=== PATIENT | female | born 1935 ===

== ENCOUNTER 2017-11-19 12:55 | Observation (INO) | payer MEDICARE, MEDICAID ==
--- NOTE | 2017-11-19 13:17 | C.PDOC ---
History Of Present Illness 82 year old female was sent to the ED by Dr. Pretty for an evaluation of chest pain that began at 0100 this morning. Patient describes pain as pressure with mild shortness of breath. She denies any nausea, syncope, diaphoresis. Time Seen by Provider: 11/19/17 13:11 Chief Complaint (Nursing): Chest Pain History Per: Patient History/Exam Limitations: no limitations Onset/Duration Of Symptoms: Hrs Current Symptoms Are (Timing): Still Present Quality: Pressure Associated Symptoms: denies: Nausea, Diaphoresis, Syncope Past Medical History Reviewed: Historical Data, Nursing Documentation, Vital Signs Vital Signs: Last Vital Signs Temp 97.9 F 11/19/17 13:05 Pulse 100 H 11/19/17 13:05 Resp 18 11/19/17 13:05 BP 123/72 11/19/17 13:49 Pulse Ox 100 11/19/17 13:42 - Medical History PMH: No Chronic Diseases Surgical History: No Surg Hx Family History: States: No Known Family Hx - Social History Hx Alcohol Use: No Hx Substance Use: No Review Of Systems Except As Marked, All Systems Reviewed And Found Negative. Cardiovascular: Positive for: Chest Pain Physical Exam - Physical Exam Appears: Non-toxic, No Acute Distress Skin: Warm, Dry Head: Atraumatic, Normacephalic Eye(s): bilateral: Normal Inspection Nose: Normal Oral Mucosa: Moist Neck: Supple Chest: Symmetrical Cardiovascular: Rhythm Regular Respiratory: Normal Breath Sounds, No Rales, No Rhonchi, No Wheezing Gastrointestinal/Abdominal: Soft, No Tenderness, No Guarding, No Rebound Neurological/Psych: Oriented x3, Normal Speech Gait: Steady ED Course And Treatment - Laboratory Results Result Diagrams: 11/19/17 13:45 11/19/17 13:45 ECG: Interpreted By Me, Viewed By Me ECG Rhythm: Sinus Rhythm ECG Interpretation: No Acute Changes Interpretation Of ECG: Normal axis, normal intervals, No ST/T wave abnormalities Rate From EC O2 Sat by Pulse Oximetry: 100 Medical Decision Making Medical Decision Making: Impression: Chest pain Plan - EKG -Labs - CXR - Aspirin 325mg PO 1430 - chest pain , case discussed with Dr. Rivera Pretty and will admit to tele observation cxr - preliminary reading - nad Disposition Discussed With : Abdulaziz Pretty Doctor Will See Patient In The: Hospital Counseled Patient/Family Regarding: Studies Performed, Diagnosis - Disposition Disposition: HOSPITALIZED Disposition Time: 14:30 Condition: FAIR Forms: [facility] (Kinyarwanda) - Clinical Impression Clinical Impression: Chest pain - Scribe Statement The provider has reviewed the documentation as recorded by the Scribe Dara Fairchild All medical record entries made by the Juanibe were at my direction and personally dictated by me. I have reviewed the chart and agree that the record accurately reflects my personal performance of the history, physical exam, medical decision making, and the department course for this patient. I have also personally directed, reviewed, and agree with the discharge instructions and disposition.
[2017-11-19] MEDS ORDERED: Aspirin 325 mg EC Tablets PO STA (13:20)
[2017-11-19 13:52] LABS: BASO % 0.3 % (0.0-2.0); EOS # 0.1 K/uL (0.0-0.7); EOS % 0.6 % (0.0-4.0); HEMOGLOBIN 13.5 g/dL (11.0-16.0); LYMPH # 1.6 K/uL (1.0-4.3); LYMPH % 18.7 % (20.0-40.0); MEAN CELL VOLUME 79.3 fL (81.0-99.0); MEAN CORPUSCULAR HEMOGLOBIN 26.3 pg (27.0-31.0); MEAN CORPUSCULAR HGB CONC 33.2 g/dL (33.0-37.0); MEAN PLATELET VOLUME 8.9 fL (7.2-11.7); MONO # 0.5 K/uL (0.0-0.8); MONO % 6.2 % (0.0-10.0); NEUT # 6.3 K/uL (1.8-7.0); NEUT % 74.2 % (50.0-75.0); RBC 5.12 Mil/uL (3.80-5.20); WHITE BLOOD COUNT 8.6 K/uL (4.8-10.8)
[2017-11-19 14:00] LABS: INR 1.1; PROTHROMBIN TIME 12.5 SECONDS (9.7-12.2)
[2017-11-19 14:09] LABS: ALB/GLOB RATIO 1.6 (1.0-2.1); ALBUMIN 4.1 g/dL (3.5-5.0); ALT/SGPT 18 U/L (9-52); AST/SGOT 22 U/L (14-36); BLOOD UREA NITROGEN 7 mg/dL (7-17); CALCIUM 9.1 mg/dl (8.6-10.4); GFR AFRICAN-AMERICAN > 60; GFR NON-AFRICAN AMERICAN > 60
[2017-11-19 14:18] LABS: B-TYPE NATRIURETIC PEPTIDE 124 pg/mL (0-900)
--- NOTE | 2017-11-19 18:06 | RAD ---
Date of service: 11/19/2017 PROCEDURE: CHEST RADIOGRAPH, 1 VIEW HISTORY: SOB COMPARISON: None available. FINDINGS: LUNGS: No acute pulmonary disease appreciated bilaterally. PLEURA: No pneumothorax or pleural fluid seen. CARDIOVASCULAR: Normal. OSSEOUS STRUCTURES: No significant abnormalities. VISUALIZED UPPER ABDOMEN: Normal. OTHER FINDINGS: None. IMPRESSION: No acute cardiopulmonary disease appreciated.
[2017-11-19 20:09] LABS: CK-MB 0.71 ng/mL (0.0-3.38)
[2017-11-19 23:11] LABS: SQUAMOUS EPITHIAL 2 /hpf (0-5); URINE BACTERIA FEW (<OCC); URINE BILIRUBIN NEGATIVE (NEGATIVE); URINE BLOOD 2+ (NEGATIVE); URINE CLARITY Clear (Clear); URINE COLOR Yellow (YELLOW); URINE GLUCOSE (UA) NORMAL (Normal); URINE PROTEIN NEGATIVE (NEGATIVE); URINE UROBILINOGEN NORMAL mg/dL (0.2-1.0)
[2017-11-19 23:21] LABS: URINE LEUKOCYTE ESTERASE 1+ Leu/uL (Negative)
[2017-11-20 01:13] VITALS: RESP 20
--- NOTE | 2017-11-20 08:35 | RAD ---
Date of service: 11/19/2017 PROCEDURE: BILATERAL SHOULDER RADIOGRAPHS HISTORY: Pain COMPARISON: None available TECHNIQUE: Two views of each shoulder been center for interpretation. FINDINGS: No acute fracture or destructive bony lesion identified. A dislocation or subluxation. Diffuse osteopenia suggests osteoporosis bilaterally with advanced degenerative change identified in the bilateral acromioclavicular joints. Limited degenerative changes seen the glenohumeral joints. Local soft tissues are unremarkable bilaterally. IMPRESSION: No acute fracture or dislocation. Degenerative changes appear moderate as discussed above bilaterally.
[2017-11-20] MEDS: Pantoprazole 40 mg EC Tab PO SCH (09:50)
[2017-11-20] MEDS: Enoxaparin 40 mg Syringe SC SCH (09:50)
--- NOTE | 2017-11-20 13:35 | CP.PCM.HP ---
Past Patient History - Infectious Disease Hx of Infectious Diseases: None - Past Social History Smoking Status: Never Smoked - PSYCHIATRIC Hx Substance Use: No - SURGICAL HISTORY Hx Surgeries: No Meds Allergies/Adverse Reactions: Allergies Allergy/AdvReac Type Severity Reaction Status Date / Time No Known Allergies Allergy Verified 11/19/17 13:04 Physical Exam - Constitutional Appears: Well - Head Exam Head Exam: ATRAUMATIC, NORMAL INSPECTION, NORMOCEPHALIC - Eye Exam Eye Exam: EOMI, Normal appearance, PERRL Pupil Exam: NORMAL ACCOMODATION, PERRL - ENT Exam ENT Exam: Mucous Membranes Moist, Normal Exam - Neck Exam Neck exam: Positive for: Normal Inspection - Respiratory Exam Respiratory Exam: Decreased Breath Sounds - Cardiovascular Exam Cardiovascular Exam: REGULAR RHYTHM, +S1, +S2 - GI/Abdominal Exam GI & Abdominal Exam: Diminished Bowel Sounds, Soft - Rectal Exam Rectal Exam: Deferred Results - Vital Signs Recent Vital Signs: Last Vital Signs Temp 98.0 F 11/20/17 07:40 Pulse 82 11/20/17 07:40 Resp 20 11/20/17 07:40 BP 125/81 11/20/17 07:40 Pulse Ox 96 11/20/17 10:00 - Labs Result Diagrams: 11/19/17 13:45 11/19/17 13:45 Labs: Laboratory Results - last 24 hr 11/19/17 11/19/17 11/19/17 13:45 13:45 13:45 WBC 8.6 RBC 5.12 Hgb 13.5 Hct 40.6 MCV 79.3 L MCH 26.3 L MCHC 33.2 RDW 14.0 Plt Count 207 MPV 8.9 Neut % (Auto) 74.2 Lymph % (Auto) 18.7 L [place] % (Auto) 6.2 Eos % (Auto) 0.6 Baso % (Auto) 0.3 Neut # (Auto) 6.3 Lymph # (Auto) 1.6 [place] # (Auto) 0.5 Eos # (Auto) 0.1 Baso # (Auto) 0.0 PT 12.5 H INR 1.1 APTT 32 Sodium 141 Potassium 3.9 Chloride 105 Carbon Dioxide 25 Anion Gap 15 BUN 7 Creatinine 0.6 L Est GFR ( Amer) > 60 Est GFR (Non-Af Amer) > 60 Random Glucose 124 H Calcium 9.1 Total Bilirubin 0.5 AST 22 ALT 18 Alkaline Phosphatase 60 Total Creatine Kinase CK-MB (Mass) Troponin I < 0.0120 NT-Pro-B Natriuret Pep 124 Total Protein 6.6 Albumin 4.1 Globulin 2.6 Albumin/Globulin Ratio 1.6 Urine Color Urine Clarity Urine pH Ur Specific [place] Urine Protein Urine Glucose (UA) Urine Ketones Urine Blood Urine Nitrate Urine Bilirubin Urine Urobilinogen Ur Leukocyte Esterase Urine WBC (Auto) Urine RBC (Auto) Ur Squamous Epith Cells Urine Bacteria 11/19/17 11/19/17 11/20/17 19:36 23:04 01:18 WBC RBC Hgb Hct MCV MCH MCHC RDW Plt Count MPV Neut % (Auto) Lymph % (Auto) [place] % (Auto) Eos % (Auto) Baso % (Auto) Neut # (Auto) Lymph # (Auto) [place] # (Auto) Eos # (Auto) Baso # (Auto) PT INR APTT Sodium Potassium Chloride Carbon Dioxide Anion Gap BUN Creatinine Est GFR ( Amer) Est GFR (Non-Af Amer) Random Glucose Calcium Total Bilirubin AST ALT Alkaline Phosphatase Total Creatine Kinase 46 43 CK-MB (Mass) 0.71 0.70 Troponin I < 0.0120 < 0.0120 NT-Pro-B Natriuret Pep Total Protein Albumin Globulin Albumin/Globulin Ratio Urine Color Yellow Urine Clarity Clear Urine pH 5.0 Ur Specific [place] 1.011 Urine Protein Negative Urine Glucose (UA) Normal Urine Ketones Negative Urine Blood 2+ H Urine Nitrate Negative Urine Bilirubin Negative Urine Urobilinogen Normal Ur Leukocyte Esterase 1+ H Urine WBC (Auto) 20 H Urine RBC (Auto) 4 H Ur Squamous Epith Cells 2 Urine Bacteria Few H
--- NOTE | 2017-11-20 14:21 | CP.PCM.CON ---
History of Present Illness - History of Present Illness History of Present Illness: 82 y/o pleasant woman Tuesday night: mild suprapubic pain, urinary sx's and hematuria reported subsequent felt pulling in neck and chest: no diaphoresis, N/V, CHF sx's or palpitation denies CP current No volume overload No fevers, chills No further hematuria PMHX: No HTN or DM PSHX: None major Social: no TOB/ETOH Review of Systems - Review of Systems All systems: reviewed and no additional remarkable complaints except Past Patient History - Infectious Disease Hx of Infectious Diseases: None - Past Social History Smoking Status: Never Smoked - PSYCHIATRIC Hx Substance Use: No - SURGICAL HISTORY Hx Surgeries: No Meds Allergies/Adverse Reactions: Allergies Allergy/AdvReac Type Severity Reaction Status Date / Time No Known Allergies Allergy Verified 11/19/17 13:04 - Medications Medications: Current Medications Acetaminophen (Tylenol 325mg Tab) 650 mg PO Q6 PRN PRN Reason: Pain, moderate (4-7) Last Admin: 11/19/17 20:56 Dose: 650 mg Aspirin (Aspirin) 325 mg PO DAILY [facility] Last Admin: 11/20/17 09:50 Dose: 325 mg Clopidogrel Bisulfate (Plavix) 75 mg PO DAILY [facility] [place] Last Admin: 11/20/17 09:50 Dose: 75 mg Enoxaparin Sodium (Lovenox) 40 mg SC DAILY [facility] [place] Last Admin: 11/20/17 09:50 Dose: 40 mg Pantoprazole Sodium (Protonix Ec Tab) 40 mg PO DAILY [facility] [place] Last Admin: 11/20/17 09:50 Dose: 40 mg Zolpidem Tartrate (Ambien) 5 mg PO HS PRN PRN Reason: Insomnia Last Admin: 11/19/17 22:10 Dose: 5 mg Physical Exam - Constitutional Appears: No Acute Distress - Head Exam Head Exam: ATRAUMATIC, NORMAL INSPECTION, NORMOCEPHALIC - Eye Exam Eye Exam: EOMI, Normal appearance, PERRL - ENT Exam ENT Exam: Mucous Membranes Moist, Normal Oropharynx - Neck Exam Neck exam: Positive for: Normal Inspection - Respiratory Exam Respiratory Exam: Clear to Auscultation Bilateral, NORMAL BREATHING PATTERN. absent: Rhonchi, Wheezes - Cardiovascular Exam Cardiovascular Exam: REGULAR RHYTHM, +S1, +S2. absent: +S4, Systolic Murmur - GI/Abdominal Exam GI & Abdominal Exam: Normal Bowel Sounds, Soft. absent: Tenderness - Extremities Exam Extremities exam: Positive for: normal inspection. Negative for: calf tenderness - Neurological Exam Neurological exam: Alert, Oriented x3 - Psychiatric Exam Psychiatric exam: Normal Affect, Normal Mood - Skin Skin Exam: Normal Color, Warm Results - Vital Signs Recent Vital Signs: Last Vital Signs Temp 98.0 F 11/20/17 07:40 Pulse 82 11/20/17 07:40 Resp 20 11/20/17 07:40 BP 125/81 11/20/17 07:40 Pulse Ox 96 11/20/17 10:00 - Labs Result Diagrams: 11/19/17 13:45 11/19/17 13:45 Labs: Laboratory Results - last 24 hr 11/19/17 11/19/17 11/19/17 13:45 19:36 23:04 Total Creatine Kinase 46 CK-MB (Mass) 0.71 Troponin I < 0.0120 < 0.0120 NT-Pro-B Natriuret Pep 124 Urine Color Yellow Urine Clarity Clear Urine pH 5.0 Ur Specific [place] 1.011 Urine Protein Negative Urine Glucose (UA) Normal Urine Ketones Negative Urine Blood 2+ H Urine Nitrate Negative Urine Bilirubin Negative Urine Urobilinogen Normal Ur Leukocyte Esterase 1+ H Urine WBC (Auto) 20 H Urine RBC (Auto) 4 H Ur Squamous Epith Cells 2 Urine Bacteria Few H 11/20/17 01:18 Total Creatine Kinase 43 CK-MB (Mass) 0.70 Troponin I < 0.0120 NT-Pro-B Natriuret Pep Urine Color Urine Clarity Urine pH Ur Specific [place] Urine Protein Urine Glucose (UA) Urine Ketones Urine Blood Urine Nitrate Urine Bilirubin Urine Urobilinogen Ur Leukocyte Esterase Urine WBC (Auto) Urine RBC (Auto) Ur Squamous Epith Cells Urine Bacteria - EKG Data EKG Interpreted by: Myself EKG shows normal: Sinus rhythm Rate: Normal Assessment & Plan - Assessment and Plan (Free Text) Assessment: CP- atypical Hematuria, mild UTI Mi ruled out; no clinical CHF or volume overload, NT-PBNP not in range for CHF EKG no ischemia * noted short run of SVT with abberancy PLAN======> 1. metoprolol ER 25 daily, cont ASA, d/c plavix 2. Monitor for 24 hours 3. f/u renal U/S 4. Will suggest d/c and f/u outpatient for consideration of stress test - Date & Time Date: 11/20/17 Time: 14:30
[2017-11-20] MEDS: Metoprolol Succinate 25 mg XL Tab PO SCH (14:50)
--- NOTE | 2017-11-20 16:30 | US ---
Date of service: 11/20/2017 PROCEDURE: Ultrasound of the Kidneys HISTORY: hematuria COMPARISON: None available. TECHNIQUE: Sonogram of the kidneys. FINDINGS: RIGHT KIDNEY: Measures: 8.7 x 3.0 x 3.8 cm. Normal in size and contour. Poor corticomedullary differentiation suggests intrinsic medical renal disease. No obstructive uropathy, urolithiasis or discrete cystic or solid renal parenchymal mass is identified. LEFT KIDNEY: Measures: 8.9 x 4.1 x 3.6 cm. Normal in size and contour. Poor corticomedullary differentiation suggests intrinsic medical renal disease. No obstructive uropathy, urolithiasis or discrete cystic or solid renal parenchymal mass is identified. OTHER FINDINGS: None. IMPRESSION: No obstructive uropathy identified bilaterally. Limited corticomedullary differentiation is is seen throughout the bilateral renal parenchyma which may indicate intrinsic medical renal disease. Clinically correlate.
[2017-11-20] MEDS: Ciprofloxacin 400mg/200ml D5W 400 MG/200 ML BAG IVPB SCH (18:05)
[2017-11-21 00:50] VITALS: TEMP 97.6
[2017-11-21] MEDS: Ciprofloxacin 400mg/200ml D5W 400 MG/200 ML BAG IVPB SCH (06:00)
[2017-11-21 08:19] VITALS: O2SAT 98
--- NOTE | 2017-11-21 09:27 | CP.PCM.PN ---
Subjective - Date & Time of Evaluation Date of Evaluation: 11/21/17 Time of Evaluation: 09:26 - Subjective Subjective: PGY-[address] Rivera Pretty's Service Patient seen and examined at bedside. Per nursing no acute events occurred overnight. Patient was reporting some lower back pain today. She denies any fevers, chills, nausea, vomiting, dizziness, syncopal episodes, or any other complaints. 82 year old female with a history of vertigo and insomnia who comes after reporting chest pain that began Tuesday. Patient had reported the chest pain being located mid-sternally with no radiation. She rated the pain initially an 7/10 in severity. She was brought to the Doctor's office by her daughter where they did an ekg that showed some abnormalities and was directed to come to the hospital. Patient was also reporting some blood upon urinating that started Tuesday as well. The patient denies any recent trauma or infection of the bladder. She denies any vaginal discharge, fevers, chills, nausea, vomiting, changes in vision, abdominal pain, or any other complaints. PMD: Dr. Rivera Pretty Past medical history: vertigo, insomnia Surgical history: denies Allergies: Denies Medications: Meclizine 25mg PO,Zolpidem 10mg PO HS, Nortriptylline 10mg, Vitamin D 50,000 IU Weekly, Restasis .05 Liq Social history: Denies alcohol and tobacco use. Denies illicit drugs. Objective - Vital Signs/Intake and Output Vital Signs (last 24 hours): Temp Pulse Resp BP Pulse Ox 97.6 F 70 20 103/66 98 11/21/17 07:35 11/21/17 08:00 11/21/17 07:35 11/21/17 07:35 11/21/17 07:35 - Medications Medications: Current Medications Acetaminophen (Tylenol 325mg Tab) 650 mg PO Q6 PRN PRN Reason: Pain, moderate (4-7) Last Admin: 11/19/17 20:56 Dose: 650 mg Aspirin (Aspirin) 325 mg PO DAILY [facility] Last Admin: 11/20/17 09:50 Dose: 325 mg Clopidogrel Bisulfate (Plavix) 75 mg PO DAILY [facility] Last Admin: 11/20/17 09:50 Dose: 75 mg Enoxaparin Sodium (Lovenox) 40 mg SC DAILY [facility] Last Admin: 11/20/17 09:50 Dose: 40 mg Ciprofloxacin (Cipro 400mg/200ml Dsw) 400 mg in 200 mls @ 133 mls/hr IVPB Q12H ADEN PRN Reason: Protocol Last Admin: 11/21/17 06:00 Dose: 133 mls/hr Metoprolol Succinate (Toprol Xl) 25 mg PO DAILY [facility] Last Admin: 11/20/17 14:50 Dose: 25 mg Pantoprazole Sodium (Protonix Ec Tab) 40 mg PO DAILY [facility] Last Admin: 11/20/17 09:50 Dose: 40 mg Zolpidem Tartrate (Ambien) 5 mg PO HS PRN PRN Reason: Insomnia Last Admin: 11/20/17 21:45 Dose: 5 mg - Labs Labs: 11/19/17 13:45 11/19/17 13:45 PT 12.5 SECONDS (9.7-12.2) H 11/19/17 13:45 INR 1.1 11/19/17 13:45 APTT 32 SECONDS (21-34) 11/19/17 13:45 - Head Exam Head Exam: ATRAUMATIC, NORMAL INSPECTION, NORMOCEPHALIC - Eye Exam Eye Exam: EOMI, Normal appearance, PERRL Pupil Exam: NORMAL ACCOMODATION, PERRL - ENT Exam ENT Exam: Mucous Membranes Moist, Normal Oropharynx - Respiratory Exam Respiratory Exam: Clear to Ausculation Bilateral, NORMAL BREATHING PATTERN. absent: Chest Wall Tenderness, Prolonged Expiratory Phase, Respiratory Distress - Cardiovascular Exam Cardiovascular Exam: REGULAR RHYTHM, +S1, +S2 - GI/Abdominal Exam GI & Abdominal Exam: Soft, Normal Bowel Sounds - Extremities Exam Extremities Exam: Normal Inspection. absent: Pedal Edema - Back Exam Back Exam: NORMAL INSPECTION. absent: paraspinal tenderness - Neurological Exam Neurological Exam: Alert, Awake, CN II-XII Intact, Normal Gait, Oriented x3 - Psychiatric Exam Psychiatric exam: Normal Affect, Normal Mood - Skin Skin Exam: Dry, Intact Assessment and Plan - Assessment and Plan (Free Text) Assessment: 82 year old female with a history of vertigo and insomnia who was admitted for chest pain and hematuria. Plan: 1. Chest pain r/o ACS -EKG: negative for ischemia. short run of SVT with abberancy -Troponins (-)x3 -BNP-124 -Cardiology consulted. :CP- atypical :Metoprolol 25 ER Daily :Aspirin :D/c Plavix :[place] ruled out :D/c and f/u outpatient for consideration of stress test. -Renal u/s :No obstructive uropathy identified bilaterally. Limited corticomedullary differentiation is seen throughout the bilateral renal parenchyma which may indicate intrinsic medical renal disease Medications: Aspirin 325 PO Daily Plavix 75mg PO Daily Discontinued 2 UTI -U/a: Urine blood: 2+, Leukocyte esterase 1+, Urine WBC:20, Urine bacteria: Few -Urine culture ordered. Will f/u with results. Medications: Ciprofloxacin 400mg IVPB Q12 (Started 11/20/17) 3. Insomina -Zolpidem 5mg PO HS PRN 4. Back pain Likely musculoskeletal -Tylenol 650mg PO Q6 PRN PPX Lovenox 40 sc daily Protonix 40mg PO Daily Discharge Instructions: 1.Follow up with PMD within 5 to 7 days of discharge. 2.Follow up with Cardiology within 5 to 7 days of discharge for outpatient stress test. 3.Return to hospital for any new or worsening symptoms. Medications: 1.Metoprolol Succinate 25mg PO Daily, #30, No refills 2. Aspirin 81mg PO Daily, #30, No refills. All management per Dr. Rivera Pretty
[2017-11-21] MEDS: Enoxaparin 40 mg Syringe SC SCH (10:36)
[2017-11-21] MEDS: Pantoprazole 40 mg EC Tab PO SCH (10:36)
[2017-11-21 10:38] VITALS: BP 118/75; PULSE 85
[2017-11-21] MEDS: Metoprolol Succinate 25 mg XL Tab PO SCH (10:38)
--- NOTE | 2017-11-21 12:14 | CARD ---
APPROVED REPORT Date of service: 11/19/2017 EKG Measurement Heart [id number] <Conclusion> Normal sinus rhythm Inferior infarct, age undetermined Abnormal ECG
--- NOTE | 2017-11-21 12:14 | CARD ---
APPROVED REPORT Date of service: 11/19/2017 EKG Measurement Heart [id number] ID [id number] <Conclusion> Normal sinus rhythm Normal ECG
--- NOTE | 2017-11-21 23:59 | CARD ---
APPROVED REPORT Date of service: 11/20/2017 EKG Measurement Heart [id number] <Conclusion> Normal sinus rhythm Inferior infarct, age undetermined Abnormal ECG
== END 2017-11-21 14:33 | disposition home or self-care (01) ==
LOC: C.ER 12:55 → C.6T 14:30
PROVIDERS: ADMIT Internal Medicine Nephrology; ATTEND Internal Medicine Nephrology
DX: I47.1 Supraventricular tachycardia (principal); N39.0 Urinary tract infection, site not specified; G47.00 Insomnia, unspecified
CPT/HCPCS: 36415; 71045; 73020; 76770; 80053; 81001; 83880; 84484; 85025; 85610; 85730; 87086; 93005; 99285; G0378; J0744; J1650